=== PATIENT | male | born 1965 | race Caucasian/White ===

== ENCOUNTER 2016-12-31 16:19 | Emergency (ER) | payer SELFPAY ==
[~2016-12-31 16:19] MED LIST: Iopamidol 370 76% 100 ML VIAL ONE
[2016-12-31 17:51] LABS: Bacteria/HPF Rare-Few HPF (None Seen); Bilirubin Negative (Negative); Blood, Urine Negative (Negative); Clarity Clear (Clear); Glucose, Urine (Dipstick) Negative (Negative); Leukocyte Negative (Negative); Nitrite Negative (Negative); Protein, Urine (Dipstick) Negative (Neg-Trace); RBC/HPF None Seen HPF (0-3); Specific Gravity, Urine 1.025 (1.005-1.030); Squamous Epithelial 0-3 HPF (0-3); WBC/HPF 0-3 HPF (0-3); pH, Urine 5.5 (5.0-9.0)
[2016-12-31 17:53] LABS: #Basophils 0.1 thou/uL (0.0-0.2); #Eosinphils 0.3 thou/uL (0.0-0.7); #Lymphocytes 3.5 thou/uL (1.20-3.40); #Monocytes 0.4 thou/uL (0.11-0.59); #Neutrophils 4.7 thou/uL (1.40-6.50); %Basophils 1.4 % (0.0-1.0); %Eosinophils 3.2 % (0.0-10.0); %Lymphocytes 38.7 % (21.0-51.0); %Monocytes 4.5 % (0.0-10.0); %Neutrophils 52.1 % (42.0-75.0); Hemoglobin 14.8 g/dL (14.0-18.0); Mean Corpuscular HGB CONC 34.3 g/dL (32.0-36.0); Mean Corpuscular Hemoglobin 31.5 pg (27.0-31.0); Mean Platelet Volume 7.1 fL (7.4-10.4); Platelet Count 222 thou/uL (130-400); RBC Distribution Width 11.1 % (11.5-14.5); White Blood Cell (WBC) Count 8.9 thou/uL (4.8-10.8)
[2016-12-31] MEDS ORDERED: Ondansetron HCl/PF 4 MG/2 ML Vial ONE ×2 (18:04→21:45)
[2016-12-31] MEDS ORDERED: Ketorolac Tromethamine 30 MG/ML VIAL ONE (18:04)
[2016-12-31 18:06] LABS: ALT (SGPT) 31 U/L (8-55); AST (SGOT) 18 U/L (5-34); Albumin 4.3 g/dL (3.5-5.0); Alkaline Phosphatase 79 U/L (40-150); Anion Gap 19 mmol/L (10-20); BUN (Urea Nitrogen) 10 mg/dL (8.4-25.7); Bilirubin, Total 0.5 mg/dL (0.2-1.2); Calc. Creatinine Clearance 0 mL/min (70-130); Calcium 9.5 mg/dL (7.8-10.44); Carbon Dioxide 20 mmol/L (22-29); Chloride 105 mmol/L (98-107); Estimated GFR-MDRD Greater than 90; Globulin 2.6 g/dL (2.4-3.5); Glucose 95 mg/dL (70-105); Lipase 27 U/L (8-78); Potassium 3.8 mmol/L (3.5-5.1); Protein, Total 6.9 g/dL (6.0-8.3); Sodium 140 mmol/L (136-145)
--- NOTE | 2016-12-31 19:41 | CT ---
CT OF THE ABDOMEN AND PELVIS WITH IV CONTRAST 12/31/16 PROVIDED CLINICAL HISTORY: Bilateral lower quadrant pain. FINDINGS: No comparisons. The visualized lung bases appear clear. The solid abdominal organs demonstrate an un remarkable CT appearance. There is suture material noted in the central aspects of the pelvis associ ated with a portion of the sigmoid colon. This portion of the sigmoid colon appears somewhat patulou s and extends somewhat eccentrically medially/centrally away from the main portion of the sigmoid co dariusz. It is uncertain whether this represents a patulous appearance on the basis of prior postsurgica l change or whether this represents a large focal diverticulum. There is no surrounding inflammatory change evident. There is no bowel dilatation, free fluid or free air apparent. The appendix is not distinctly identified. There is fluid density present within the distal small bowel and colon sugges ting an enteritis/colitis. Vascular calcification involves the abdominal aorta and its branches. The osseous structures demonst rate no concerning lytic or blastic lesions. Degenerative changes are seen involving the lumbar spin e. IMPRESSION: 1. Possible large diverticulum involving the sigmoid colon without CT evidence for diverticulit is. 2. Fluid density within the distal small bowel and colon suggesting enteritis/colitis. POS: [facility]
[2016-12-31] MEDS ORDERED: metroNIDAZOLE 500 MG/100 ML BAG ONE (20:30)
== END 2016-12-31 22:20 | disposition home or self-care (01) ==
LOC: MADERS 16:19
DX: K52.9 Noninfective gastroenteritis and colitis, unspecified (principal); I10 Essential (primary) hypertension; F32.9 Major depressive disorder, single episode, unspecified; Z79.899 Other long term (current) drug therapy
CPT/HCPCS: 36415; 74177; 80053; 81001; 82150; 83690; 85025; 87086; 96365; 96368; 96375; 96376; J1885; J1956; J2270; J2405

== ENCOUNTER 2017-04-16 20:41 | Emergency (ER) | payer SELFPAY ==
[2017-04-16] MEDS ORDERED: Ciprofloxacin 500 MG TAB ONE (21:07)
[2017-04-16] MEDS ORDERED: Ondansetron ODT 4 MG TAB ONE (21:07)
[2017-04-16] MEDS ORDERED: Acetaminophen/Codeine 30-300mg Tablet ONE (21:26)
[2017-04-16 21:31] LABS: Clarity Clear (Clear); Glucose, Urine (Dipstick) Negative (Negative); Leukocyte Negative (Negative); Nitrite Negative (Negative); Protein, Urine (Dipstick) Negative (Neg-Trace); Specific Gravity, Urine 1.015 (1.005-1.030); pH, Urine 5.5 (5.0-9.0)
[2017-04-16 21:32] LABS: Bilirubin Negative (Negative); Blood, Urine Negative (Negative); Urobilinogen 0.2 mg/dL (0.2-1.0)
[2017-04-16] MEDS ORDERED: metroNIDAZOLE 250 MG TAB ONE (22:03)
== END 2017-04-16 22:40 | disposition home or self-care (01) ==
LOC: MADERS 20:41
DX: K52.9 Noninfective gastroenteritis and colitis, unspecified (principal); I10 Essential (primary) hypertension; F32.9 Major depressive disorder, single episode, unspecified; Z79.899 Other long term (current) drug therapy
CPT/HCPCS: 81003; 99284; Q0162

== ENCOUNTER 2017-07-07 10:44 | Emergency (ER) | payer SELFPAY ==
[~2017-07-07 10:44] MED LIST changes: +Sodium Chloride 0.9% 1,000 ML BAG ONE
[2017-07-07] MEDS ORDERED: Famotidine In NaCl 20 mg/50 ml Premix Bag ONE (11:34)
[2017-07-07] MEDS ORDERED: Ondansetron HCl/PF 4 MG/2 ML Vial ONE (11:34)
[2017-07-07 11:39] LABS: #Basophils 0.1 thou/uL (0.0-0.2); #Eosinphils 0.2 thou/uL (0.0-0.7); #Monocytes 0.5 thou/uL (0.11-0.59); #Neutrophils 4.1 thou/uL (1.40-6.50); %Basophils 1.6 % (0.0-1.0); %Eosinophils 2.3 % (0.0-10.0); %Lymphocytes 37.6 % (21.0-51.0); %Monocytes 6.4 % (0.0-10.0); %Neutrophils 52.1 % (42.0-75.0); Hemoglobin 15.5 g/dL (14.0-18.0); Mean Corpuscular HGB CONC 34.4 g/dL (32.0-36.0); Mean Corpuscular Hemoglobin 31.1 pg (27.0-31.0); Mean Corpuscular Volume 90.5 fl (80.0-94.0); Mean Platelet Volume 6.3 fL (7.4-10.4); Platelet Count 257 thou/uL (130-400); RBC Distribution Width 11.1 % (11.5-14.5); Red Blood Cell (RBC) Count 4.98 mill/uL (4.70-6.10); White Blood Cell (WBC) Count 7.9 thou/uL (4.8-10.8)
[2017-07-07 11:52] LABS: Anion Gap 15 mmol/L (10-20); BUN (Urea Nitrogen) 10 mg/dL (8.4-25.7); Calc. Creatinine Clearance 0 mL/min (70-130); Carbon Dioxide 24 mmol/L (22-29); Chloride 104 mmol/L (98-107); Estimated GFR-MDRD Greater than 90; Glucose 87 mg/dL (70-105); Lipase 421 U/L (8-78); Sodium 139 mmol/L (136-145)
--- NOTE | 2017-07-07 13:56 | CT ---
CT ABDOMEN AND PELVIS WITH IV AND ENTERIC CONTRAST: Date: 07-07-17 Provided Clinical History: Abdominal pain. Comparison: 12-31-16 FINDINGS: The visualized lung bases are free of significant opacity. The liver, spleen, pancreas, kidneys and adrenal glands demonstrate no acute abnormality. There is a stable simple cyst involving the left kidney. There is no bowel dilatation, inflammatory fat stranding, free fluid or lymph node enlargement appare nt. There is either a large diverticulum or a patulous anastomosis at the rectosigmoid junction. Thi s appears similar to the prior study. There is no surrounding inflammatory change. The osseous structures demonstrate no concerning osteoblastic or osteolytic lesions. IMPRESSION: 1. No evidence for an acute process. POS: [facility]
== END 2017-07-07 14:33 | disposition home or self-care (01) ==
LOC: MADERS 10:44
DX: K59.00 Constipation, unspecified (principal); I10 Essential (primary) hypertension; F32.9 Major depressive disorder, single episode, unspecified; Z79.899 Other long term (current) drug therapy
CPT/HCPCS: 74177; 80048; 82150; 83690; 85025; 96365; 96375; J2405; J7050

== ENCOUNTER 2017-07-22 13:37 | Emergency (ER) | payer SELFPAY | END 2017-07-22 17:24 | disposition home or self-care (01) | LOC: MADERS 13:37 | DX: K64.8 Other hemorrhoids (principal); I10 Essential (primary) hypertension; Z79.899 Other long term (current) drug therapy | CPT/HCPCS: 99283 ==

== ENCOUNTER 2018-01-28 13:59 | Emergency (ER) | payer OTHER ==
[2018-01-28] MEDS ORDERED: predniSONE 20 MG TAB ONE (14:21)
[2018-01-28] MEDS ORDERED: HYDROcodone/Acetaminophen 10/325 mg Tablet ONE (14:21)
== END 2018-01-28 14:32 | disposition home or self-care (01) ==
LOC: MADERS 13:59
DX: S29.012A Strain of muscle and tendon of back wall of thorax, initial encounter (principal); F32.9 Major depressive disorder, single episode, unspecified; Z79.899 Other long term (current) drug therapy; X50.1XXA Overexertion from prolonged static or awkward postures, initial encounter
CPT/HCPCS: 99283; J7506

== ENCOUNTER 2020-12-03 12:03 | Emergency (ER) | payer OTHER, SELFPAY | END 2020-12-03 12:55 | disposition home or self-care (01) | LOC: MADERS 12:03 | DX: J32.0 Chronic maxillary sinusitis (principal); I10 Essential (primary) hypertension; Z79.899 Other long term (current) drug therapy | CPT/HCPCS: 99283 ==

== ENCOUNTER 2020-12-28 11:00 | Emergency (ER) | payer OTHER ==
[2020-12-28] MEDS ORDERED: Dexamethasone 4 MG TAB ONE (11:38)
== END 2020-12-28 11:54 | disposition home or self-care (01) ==
LOC: MADERS 11:00
DX: J01.90 Acute sinusitis, unspecified (principal); R21 Rash and other nonspecific skin eruption; B96.89 Other specified bacterial agents as the cause of diseases classified elsewhere; I10 Essential (primary) hypertension; Z79.899 Other long term (current) drug therapy
CPT/HCPCS: 99283; J8540

== ENCOUNTER 2021-07-31 15:56 | Emergency (ER) | payer OTHER ==
[2021-07-31] MEDS ORDERED: Amoxicillin/Potassium Clav 875 MG TAB ONE (16:32)
[2021-07-31] MEDS ORDERED: Dexamethasone 10 MG/ML VIAL ONE (16:32)
== END 2021-07-31 16:42 | disposition home or self-care (01) ==
LOC: MADERS 15:56
DX: J32.1 Chronic frontal sinusitis (principal); J32.0 Chronic maxillary sinusitis; I10 Essential (primary) hypertension; Z79.899 Other long term (current) drug therapy
CPT/HCPCS: 96372; 99283; J1100

== ENCOUNTER 2021-11-08 21:18 | Emergency (ER) | payer OTHER ==
[2021-11-08] MEDS ORDERED: predniSONE 20 MG TAB ONE (22:43)
== END 2021-11-08 22:47 | disposition home or self-care (01) ==
LOC: MADERS 21:18
DX: J45.909 Unspecified asthma, uncomplicated (principal); I10 Essential (primary) hypertension; Z79.899 Other long term (current) drug therapy
CPT/HCPCS: 71046; 93005; 94640; J7512; J7620

== ENCOUNTER 2021-12-30 20:03 | Emergency (ER) | payer OTHER ==
[2021-12-30 20:53] LABS: #Basophils 0.1 thou/uL (0.0-0.2); #Eosinphils 0.4 thou/uL (0.0-0.7); #Lymphocytes 4.3 thou/uL (1.20-3.40); #Monocytes 0.5 thou/uL (0.11-0.59); #Neutrophils 4.7 thou/uL (1.40-6.50); %Basophils 1.3 % (0.0-1.0); %Eosinophils 3.8 % (0.0-10.0); %Lymphocytes 42.7 % (21.0-51.0); %Neutrophils 47.2 % (42.0-75.0); Mean Corpuscular HGB CONC 34.5 g/dL (32.0-36.0); Mean Corpuscular Hemoglobin 30.1 pg (27.0-31.0); Mean Corpuscular Volume 87.2 fL (78.0-98.0); Mean Platelet Volume 7.6 fL (7.4-10.4); Platelet Count 214 thou/uL (130-400); RBC Distribution Width 11.5 % (11.5-14.5); Red Blood Cell (RBC) Count 4.98 mill/uL (4.70-6.10)
[2021-12-30 20:59] LABS: Bilirubin Negative (Negative); Blood, Urine Negative (Negative); Clarity Clear (Clear); Glucose, Urine (Dipstick) Negative (Negative); Ketone, Urine Negative (Negative); Leukocyte Negative (Negative); Nitrite Negative (Negative); Protein, Urine (Dipstick) Negative (Neg-Trace); Specific Gravity, Urine 1.025 (1.005-1.030); Urobilinogen 0.2 mg/dL (Less than 2)
[2021-12-30 21:14] LABS: ALT (SGPT) 30 U/L (8-55); AST (SGOT) 16 U/L (5-34); Albumin 4.4 g/dL (3.5-5.0); Alkaline Phosphatase 77 U/L (40-110); Anion Gap 18 mmol/L (10-20); BUN (Urea Nitrogen) 16 mg/dL (8.4-25.7); Bilirubin, Total 0.7 mg/dL (0.2-1.2); Calc. Creatinine Clearance 0 mL/min (70-130); Calcium 9.3 mg/dL (7.8-10.44); Carbon Dioxide 21 mmol/L (22-29); Chloride 104 mmol/L (98-107); Estimated GFR 101; Globulin 2.7 g/dL (2.4-3.5); Glucose 94 mg/dL (70-105); Lipase 26 U/L (8-78); Potassium 3.8 mmol/L (3.5-5.1); Protein, Total 7.1 g/dL (6.0-8.3); Sodium 139 mmol/L (136-145)
== END 2021-12-30 22:28 | disposition home or self-care (01) ==
LOC: MADERS 20:03
DX: K59.00 Constipation, unspecified (principal); I10 Essential (primary) hypertension; Z79.899 Other long term (current) drug therapy
CPT/HCPCS: 71045; 74176; 80053; 81003; 83690; 83735; 84443; 84484; 85025; 93005; 94760

== ENCOUNTER 2022-06-29 10:14 | Emergency (ER) | payer OTHER ==
[2022-06-29] MEDS ORDERED: Ibuprofen 600 MG TAB ONE (11:18)
== END 2022-06-29 12:09 | disposition home or self-care (01) ==
LOC: MADERS 10:14
DX: M72.2 Plantar fascial fibromatosis (principal); I10 Essential (primary) hypertension

== ENCOUNTER 2022-08-10 15:33 | Emergency (ER) | payer OTHER ==
[2022-08-10] MEDS ORDERED: Morphine 4 MG/ML VIAL ONE ×2 (16:22→17:56)
[2022-08-10 16:40] LABS: #Basophils 0.1 thou/uL (0.0-0.2); #Eosinphils 0.1 thou/uL (0.0-0.7); #Lymphocytes 2.1 thou/uL (1.20-3.40); #Monocytes 0.6 thou/uL (0.11-0.59); #Neutrophils 6.5 thou/uL (1.40-6.50); %Basophils 1.2 % (0.0-1.0); %Lymphocytes 22.2 % (21.0-51.0); %Monocytes 6.3 % (0.0-10.0); %Neutrophils 69.3 % (42.0-75.0); Hemoglobin 15.2 g/dL (14.0-18.0); Mean Corpuscular HGB CONC 35.1 g/dL (32.0-36.0); Mean Corpuscular Hemoglobin 31.1 pg (27.0-31.0); Mean Corpuscular Volume 88.6 fl (78.0-98.0); Mean Platelet Volume 7.2 fL (7.4-10.4); Platelet Count 246 10x3/uL (130-400); RBC Distribution Width 10.9 % (11.5-14.5); Red Blood Cell (RBC) Count 4.88 mill/uL (4.70-6.10); White Blood Cell (WBC) Count 9.4 10x3/uL (4.8-10.8)
[2022-08-10 16:56] LABS: ALT (SGPT) 32 U/L (8-55); AST (SGOT) 18 U/L (5-34); Albumin 4.5 g/dL (3.5-5.0); Alkaline Phosphatase 87 U/L (40-110); Anion Gap 15 mmol/L (10-20); BUN (Urea Nitrogen) 11 mg/dL (8.4-25.7); Bilirubin, Total 0.4 mg/dL (0.2-1.2); Calc. Creatinine Clearance 0 mL/min (70-130); Calcium 9.6 mg/dL (7.8-10.44); Carbon Dioxide 22 mmol/L (22-29); Chloride 103 mmol/L (98-107); Estimated GFR 103; Globulin 2.7 g/dL (2.4-3.5); Glucose 118 mg/dL (70-105); Potassium 3.8 mmol/L (3.5-5.1); Protein, Total 7.2 g/dL (6.0-8.3); Sodium 136 mmol/L (136-145)
== END 2022-08-10 18:08 | disposition home or self-care (01) ==
LOC: MADERS 15:33
DX: M54.50 Low back pain, unspecified (principal); M54.2 Cervicalgia; I10 Essential (primary) hypertension; V48.0XXA Car driver injured in noncollision transport accident in nontraffic accident, initial encounter
CPT/HCPCS: 70450; 71045; 72125; 74177; 80053; 85025; 85610; 93005; 96374; 96376; J2270; J7050; Q9967

== ENCOUNTER 2022-08-23 17:12 | Emergency (ER) | payer OTHER, SELFPAY ==
[2022-08-23] MEDS ORDERED: Ketorolac Tromethamine 30 MG/ML VIAL ONE (17:43)
[2022-08-23] MEDS ORDERED: Metoclopramide HCl 10 MG/2 ML VIAL ONE (17:43)
[2022-08-23] MEDS ORDERED: diphenhydrAMINE 50 MG/ML VIAL ONE (17:43)
[2022-08-23 17:44] LABS: #Basophils 0.1 thou/uL (0.0-0.2); #Eosinphils 0.2 thou/uL (0.0-0.7); #Lymphocytes 4.1 thou/uL (1.20-3.40); #Monocytes 0.7 thou/uL (0.11-0.59); %Basophils 1.1 % (0.0-1.0); %Eosinophils 1.6 % (0.0-10.0); %Lymphocytes 40.6 % (21.0-51.0); %Monocytes 7.4 % (0.0-10.0); %Neutrophils 49.4 % (42.0-75.0); Hemoglobin 14.7 g/dL (14.0-18.0); Mean Corpuscular HGB CONC 35.4 g/dL (32.0-36.0); Mean Corpuscular Hemoglobin 30.7 pg (27.0-31.0); Mean Corpuscular Volume 86.6 fl (78.0-98.0); Mean Platelet Volume 6.3 fL (7.4-10.4); Platelet Count 276 10x3/uL (130-400); RBC Distribution Width 10.4 % (11.5-14.5); Red Blood Cell (RBC) Count 4.78 mill/uL (4.70-6.10); White Blood Cell (WBC) Count 10.1 10x3/uL (4.8-10.8)
[2022-08-23 18:00] LABS: Acetaminophen Less than 10.0 mcg/mL (10.0-30.0); Alcohol Less than 10 mg/dL (Less than 10); Salicylate Less than 8.0 mg/dL (15.0-30.0)
[2022-08-23 18:02] LABS: ALT (SGPT) 35 U/L (8-55); AST (SGOT) 17 U/L (5-34); Albumin 4.3 g/dL (3.5-5.0); Alkaline Phosphatase 67 U/L (40-110); Anion Gap 13 mmol/L (10-20); BUN (Urea Nitrogen) 10 mg/dL (8.4-25.7); Bilirubin, Total 0.5 mg/dL (0.2-1.2); Calc. Creatinine Clearance 0 mL/min (70-130); Calcium 9.3 mg/dL (7.8-10.44); Carbon Dioxide 23 mmol/L (22-29); Chloride 104 mmol/L (98-107); Estimated GFR 105; Globulin 2.6 g/dL (2.4-3.5); Glucose 91 mg/dL (70-105); Potassium 3.6 mmol/L (3.5-5.1); Protein, Total 6.9 g/dL (6.0-8.3); Sodium 136 mmol/L (136-145)
[2022-08-23 19:03] LABS: Amphetamine Not Detected (NotDetected); Barbiturates Screen Not Detected (NotDetected); Benzodiazepine Screen Not Detected (NotDetected); Cocaine Metabolite Screen Not Detected (NotDetected); Medtox Control Line Valid? VALID (VALID); Methadone Not Detected (NotDetected); Methamphetamine Not Detected (NotDetected); Opiate Screen Not Detected (NotDetected); Oxycodone Screen Not Detected (NotDetected); Phencyclidine (PCP) Not Detected (NotDetected); THC/Cannabinoid Screen Detected (NotDetected); Tricyclic Screen Not Detected (NotDetected)
[2022-08-23] MEDS ORDERED: Labetalol HCl 100 MG/20 ML VIAL ONE (19:16)
== END 2022-08-23 19:25 | disposition home or self-care (01) ==
LOC: MADERS 17:12
DX: R51.9 Headache, unspecified (principal); I10 Essential (primary) hypertension; Z79.899 Other long term (current) drug therapy
CPT/HCPCS: 70450; 80053; 80306; 80307; 85025; 96374; 96375; J1200; J1885; J2765

== ENCOUNTER 2022-10-29 14:49 | Emergency (ER) | payer OTHER ==
[2022-10-29] MEDS ORDERED: traMADol HCl 50 MG TAB ONE (15:37)
[2022-10-29 16:21] LABS: #Basophils 0.1 thou/uL (0.0-0.2); #Eosinphils 0.1 thou/uL (0.0-0.7); #Lymphocytes 3.3 thou/uL (1.20-3.40); #Monocytes 0.7 thou/uL (0.11-0.59); #Neutrophils 6.1 thou/uL (1.40-6.50); %Basophils 1.4 % (0.0-1.0); %Eosinophils 1.4 % (0.0-10.0); %Lymphocytes 32.1 % (21.0-51.0); %Monocytes 6.7 % (0.0-10.0); %Neutrophils 58.4 % (42.0-75.0); Hemoglobin 15.6 g/dL (14.0-18.0); Mean Corpuscular HGB CONC 33.9 g/dL (32.0-36.0); Mean Corpuscular Hemoglobin 31.1 pg (27.0-31.0); Mean Corpuscular Volume 91.8 fl (78.0-98.0); Mean Platelet Volume 7.8 fL (7.4-10.4); Platelet Count 246 10x3/uL (130-400); RBC Distribution Width 11.9 % (11.5-14.5); Red Blood Cell (RBC) Count 5.02 mill/uL (4.70-6.10); White Blood Cell (WBC) Count 10.4 10x3/uL (4.8-10.8)
[2022-10-29 16:27] LABS: Anion Gap 14 mmol/L (10-20); BUN (Urea Nitrogen) 14 mg/dL (8.4-25.7); CRP (Inflammatory) Less than 0.50 mg/dL (= or < 0.5); Calc. Creatinine Clearance 0 mL/min (70-130); Calcium 9.4 mg/dL (7.8-10.44); Carbon Dioxide 25 mmol/L (22-29); Chloride 102 mmol/L (98-107); Estimated GFR 102; Glucose 105 mg/dL (70-105); Potassium 4.4 mmol/L (3.5-5.1); Sodium 137 mmol/L (136-145)
== END 2022-10-29 17:19 | disposition home or self-care (01) ==
LOC: MADERS 14:49
DX: M54.41 Lumbago with sciatica, right side (principal); I10 Essential (primary) hypertension; Z79.899 Other long term (current) drug therapy
CPT/HCPCS: 36415; 80048; 85025; 86140; 99283

== ENCOUNTER 2023-08-02 19:36 | Emergency (ER) | payer SELFPAY ==
[2023-08-02] MEDS ORDERED: Ibuprofen 800 MG TAB ONE (19:57)
== END 2023-08-02 21:18 | disposition home or self-care (01) ==
LOC: MADERS 19:36
DX: S90.31XA Contusion of right foot, initial encounter (principal); I10 Essential (primary) hypertension; W54.1XXA Struck by dog, initial encounter

== ENCOUNTER 2023-08-26 19:26 | Emergency (ER) | payer SELFPAY ==
[2023-08-26] MEDS ORDERED: Sodium Chloride 0.9% 1,000 ML ONE (20:10)
[2023-08-26] MEDS ORDERED: Metoclopramide HCl 10 MG (2 mL) VIAL ONE (20:10)
[2023-08-26] MEDS ORDERED: Ketorolac Tromethamine 30 MG (1 mL) VIAL ONE (20:10)
[2023-08-26 20:37] LABS: ALT (SGPT) 34 U/L (8-55); AST (SGOT) 19 U/L (5-34); Albumin 4.2 g/dL (3.5-5.0); Alkaline Phosphatase 67 U/L (40-110); Anion Gap 15 mmol/L (10-20); BUN (Urea Nitrogen) 7 mg/dL (8.4-25.7); Bilirubin, Total 0.4 mg/dL (0.2-1.2); Calc. Creatinine Clearance 0 mL/min (70-130); Calcium 8.8 mg/dL (7.8-10.44); Carbon Dioxide 22 mmol/L (22-29); Chloride 107 mmol/L (98-107); Estimated GFR 104; Globulin 2.5 g/dL (2.4-3.5); Glucose 108 mg/dL (70-105); Potassium 3.5 mmol/L (3.5-5.1); Protein, Total 6.7 g/dL (6.0-8.3); Sodium 140 mmol/L (136-145)
[2023-08-26 20:41] LABS: #Basophils 0.1 thou/uL (0.0-0.2); #Eosinphils 0.2 thou/uL (0.0-0.7); #Lymphocytes 3.3 thou/uL (1.20-3.40); #Monocytes 0.5 thou/uL (0.11-0.59); #Neutrophils 3.8 thou/uL (1.40-6.50); %Basophils 1.2 % (0.0-1.0); %Lymphocytes 41.9 % (21.0-51.0); %Monocytes 5.7 % (0.0-10.0); %Neutrophils 48.1 % (42.0-75.0); Hematocrit 40.6 % (42.0-52.0); Hemoglobin 14.8 g/dL (14.0-18.0); Mean Corpuscular HGB CONC 36.5 g/dL (32.0-36.0); Mean Corpuscular Hemoglobin 32.7 pg (27.0-31.0); Mean Corpuscular Volume 89.4 fl (78.0-98.0); Mean Platelet Volume 8.2 fL (7.4-10.4); Platelet Count 225 10x3/uL (130-400); RBC Distribution Width 11.6 % (11.5-14.5); Red Blood Cell (RBC) Count 4.54 mill/uL (4.70-6.10); White Blood Cell (WBC) Count 7.8 10x3/uL (4.8-10.8)
[2023-08-26 20:59] LABS: Bilirubin Negative (Negative); Blood, Urine Negative (Negative); Clarity Clear (Clear); Glucose, Urine (Dipstick) Negative (Negative); Ketone, Urine Negative (Negative); Leukocyte Negative (Negative); Nitrite Negative (Negative); Protein, Urine (Dipstick) Negative (Neg-Trace); Urobilinogen 0.2 mg/dL (Less than 2)
[2023-08-26 21:00] LABS: CAUTI Indications for Culture Pelvic or flank pain; RBC/HPF None Seen HPF (0-3); Squamous Epithelial 0-3 HPF (0-3); WBC/HPF None Seen HPF (0-3)
[2023-08-26 21:01] LABS: Urine Culture Reflex No No
== END 2023-08-26 21:25 | disposition home or self-care (01) ==
LOC: MADERS 19:26
DX: G43.909 Migraine, unspecified, not intractable, without status migrainosus (principal); K59.00 Constipation, unspecified; I10 Essential (primary) hypertension
CPT/HCPCS: 36415; 74177; 80053; 81001; 85025; 93005; 96361; 96374; 96375; J1885; J2765; J7050